=== PATIENT | male | born 1975 | race Caucasian/White ===

== ENCOUNTER 2018-02-13 19:17 | Emergency (ER) | END 2018-02-13 21:19 | disposition home or self-care (01) ==

== ENCOUNTER 2018-04-18 21:35 | Emergency (ER) | payer MEDICAID ==
[~2018-04-18] VITALS: Wt 70.1 kg
[~2018-04-18 21:35] MED LIST: IBUP-1542 PO; METH750T93 PO; ONDA4TAB14 PO
[2018-04-19 01:30] VITALS: BP 127/93; PULSE 62; RESP 13
--- NOTE | 2018-04-19 01:36 | ERD ---
ER Documentation Chief Complaint Chief Complaint PALPITATIONS HPI This is a 42-year-old male who presents to the emergency room for evaluation of heart palpitations, and heartburn. The patient states that he does drink alcohol almost daily. The patient denies any tobacco abuse and denies taking medications for high blood pressure or diabetes. Patient came to the ER today for evaluation of his symptoms. He states that his symptoms are worse after he eats spicy foods. The patient denies any nausea vomiting or diarrhea. ROS All systems reviewed and are negative except as per history of present illness. Medications Home Meds Active Scripts Ondansetron (Ondansetron Odt) 4 Mg Tab.rapdis, 4 MG PO Q6H PRN for NAUSEA AND/OR VOMITING, #15 TAB Prov:MIR PETERS 02/13/18 Methocarbamol* (Robaxin*) 750 Mg Tablet, 750 MG PO TID PRN for MUSCLE SPASMS, #30 TAB Prov:MIR PETERS 02/13/18 Ibuprofen* (Ibuprofen*) 600 Mg Tablet, 600 MG PO Q6H PRN for PAIN, #30 TAB Prov:MIR PETERS 02/13/18 Reported Medications [None] No Conflict Check 11/23/12 [None] No Conflict Check 10/16/09 Allergies Allergies: Coded Allergies: No Known Allergies (Verified Allergy, Mild, 11/23/12) PMhx/Soc History of Surgery: No Anesthesia Reaction: No Hx Neurological Disorder: No Hx Respiratory Disorders: No Hx Cardiac Disorders: No Hx Psychiatric Problems: No Hx Miscellaneous Medical Probl: No Hx Alcohol Use: Yes (occassional beer ) Hx Substance Use: No Hx Tobacco Use: No Physical Exam Vitals Vital Signs Date Temp Pulse Resp B/P (MAP) Pulse Ox O2 O2 Flow FiO2 Time Delivery Rate 04/18/18 98.1 70 18 143/90 96 21:38 (107) Physical Exam Const: No acute distress Head: Atraumatic Eyes: Normal Conjunctiva ENT: Normal External Ears, Nose and Mouth. Neck: Full range of motion. No meningismus. Resp: Clear to auscultation bilaterally Cardio: Regular rate and rhythm, no murmurs Abd: Soft, non tender, non distended. Normal bowel sounds Skin: No petechiae or rashes Back: No midline or flank tenderness Ext: No cyanosis, or edema Neur: Awake and alert Psych: Normal Mood and Affect Result Diagram: 04/19/18 0035 04/19/18 0035 Results 24 hrs Laboratory Tests Test 04/19/18 00:35 White Blood Count 5.4 10^3/ul Red Blood Count 4.85 10^6/ul Hemoglobin 15.2 g/dl Hematocrit 44.3 % Mean Corpuscular Volume 91.3 fl Mean Corpuscular Hemoglobin 31.3 pg Mean Corpuscular Hemoglobin Concent 34.3 g/dl Red Cell Distribution Width 12.2 % Platelet Count 149 10^3/UL Mean Platelet Volume 12.5 fl Immature Granulocytes % 0.400 % Neutrophils % 57.5 % Lymphocytes % 31.5 % Monocytes % 8.5 % Eosinophils % 1.5 % Basophils % 0.6 % Nucleated Red Blood Cells % 0.0 /100WBC Immature Granulocytes # 0.020 10^3/ul Neutrophils # 3.1 10^3/ul Lymphocytes # 1.7 10^3/ul Monocytes # 0.5 10^3/ul Eosinophils # 0.1 10^3/ul Basophils # 0.0 10^3/ul Nucleated Red Blood Cells # 0.0 10^3/ul Sodium Level 138 mmol/L Potassium Level 4.3 mmol/L Chloride Level 100 mmol/L Carbon Dioxide Level 29 mmol/L Anion Gap 9 Blood Urea Nitrogen 16 mg/dl Creatinine 0.78 mg/dl Est Glomerular Filtrat Rate mL/min > 60 mL/min Glucose Level 121 mg/dl Calcium Level 9.5 mg/dl Troponin I < 0.012 ng/ml [facility] EKG: Rate/Rhythm: [Normal Sinus Rhythm] QRS, ST, T-waves: [No changes consistent w/ acute ischemia] Impression: [No evidence of ischemia or arrhythmia] Chest X-ray 1V Interpreted by me: Soft Tissue: No acute abnormalities Bones: No acute abnormalities Mediastinum/Cardiac Silhouette/Lungs: [No acute abnormalities] This is a 42-year-old male presents to the ER for evaluation of heartburn, and periodic heart palpitations. On my exam the patient is afebrile, nontoxic- appearing, and hemodynamically stable. The patient had an EKG done which is nonischemic and shows normal sinus rhythm. Chest x-ray is clear. Troponin is normal. His lab work is normal and the patient's pulse ox is remained at 99% on room air. The patient is sleeping comfortably on my reevaluation. The patient likely suffering from GERD. The patient has a heart score of 1 and his risk for M ARI is low. The patient will be discharged at this time with instructions to follow with his PCP for outpatient stress testing. He will be discharged home with a prescription for Zantac as well. He was given strict return precautions and verbalized understanding. Differential diagnoses entertained was broad with potential high acuity. Patient has been evaluated for acute myocardial infarction, unstable angina, aortic dissection, pulmonary embolism, other intrathoracic and cardiac concerns. Ultimately the patient's evaluation is nondiagnostic. Based on the patient's lack of risk factors, as well as the patient's clinical, laboratory, and imaging data, the patient appears to be low risk for these high risk causes of chest pain. Departure Diagnosis: Primary Impression: Palpitations Additional Impressions: GERD (gastroesophageal reflux disease) Alcohol use Condition: Stable SAM RAYGOZA DO Apr 19, 2018 01:36
[2018-04-19] MEDS ORDERED: RANI150T35 PO (01:37)
== END 2018-04-19 01:51 | disposition home or self-care (01) ==
LOC: E/R 21:35
DX: K21.9 Gastro-esophageal reflux disease without esophagitis (principal); F10.99 Alcohol use, unspecified with unspecified alcohol-induced disorder
CPT/HCPCS: 36415; 71045; 80048; 84484; 85025; 93005; Z7502